=== PATIENT | male | born 1950 | race Caucasian/White ===

== ENCOUNTER 2021-09-03 11:20 | Outpatient (REF) | payer MEDICARE, SELFPAY ==
--- NOTE | ~2021-09-03 | XR_ITS ---
EXAMINATION: XR CHEST CLINICAL INFORMATION: R05.9 - Cough, unspecified COMPARISON: Chest radiographs 07/21/2020, 07/16/2018. TECHNIQUE: 2 views of the chest were obtained. FINDINGS: The lungs are clear. There is no airspace consolidation or groundglass opacity or effusion. The costophrenic sulci are well-defined. The heart is normal in size. The hilar and mediastinal contours are unremarkable. No acute bony abnormality. XR/XR chest 2V IMPRESSION: Unremarkable examination.
== END 2021-09-03 11:21 | disposition home or self-care (01) ==
LOC: HO.HMGCX 11:20
PROVIDERS: PCP Internal Medicine; Visit Provider Physician Assistant Medical
DX: R05.9 Cough, unspecified (principal)
CPT/HCPCS: 71046

== ENCOUNTER 2021-09-12 13:37 | Outpatient (REF) | payer MEDICARE, SELFPAY ==
--- NOTE | ~2021-09-12 | US_ITS ---
EXAMINATION: US RETROPERITONEAL LIMITED (RENAL ONLY) CLINICAL INFORMATION: Malignant neoplasm of bladder, unspecified. COMPARISON: CT abdomen and pelvis 10/30/2020. X-ray abdomen 08/21/2017. TECHNIQUE: Real-time imaging of the kidneys. FINDINGS: RIGHT KIDNEY: 10.6 x 5.6 x 5.8 cm (SAG x AP x TRV). The kidney is normal in size, contour, and echogenicity. Renal cortical thickness is normal. No renal calculi or hydronephrosis. Redemonstration of a mid/upper pole simple cyst measuring up to 4.3 cm, not significantly changed. LEFT KIDNEY: 12.3 x 5.9 x 4.7 cm (SAG x AP x TRV). The kidney is normal in size, contour, and echogenicity. Renal cortical thickness is normal. No renal calculi or hydronephrosis. Upper pole simple cyst measuring up to 5.6 cm, not significantly changed. US/US renal BI IMPRESSION: No hydronephrosis or hydroureter. Simple bilateral renal cysts, similar when compared to the prior CT. No new renal parenchymal lesion.
== END 2021-09-12 13:38 | disposition home or self-care (01) ==
LOC: HO.HMGCX 13:37
PROVIDERS: PCP Internal Medicine; Visit Provider Urology
DX: R31.29 Other microscopic hematuria (principal); C67.9 Malignant neoplasm of bladder, unspecified
CPT/HCPCS: 76775

== ENCOUNTER → 2021-10-23 11:28 | Outpatient (BNVA) | payer MEDICARE, SELFPAY | PROVIDERS: PCP Internal Medicine; Visit Provider Urology | CPT/HCPCS: Q3014 ==

== ENCOUNTER 2022-09-23 06:07 | Outpatient (REF) | payer MEDICARE, SELFPAY ==
--- NOTE | ~2022-09-23 | CT_ITS ---
EXAMINATION: CT ABDOMEN AND PELVIS WITHOUT AND WITH CONTRAST CLINICAL INFORMATION: Bladder cancer COMPARISON: Previous CT of the abdomen and pelvis July 2020 and renal ultrasound August 2021 TECHNIQUE: Noncontrast CT of the abdomen and pelvis is performed followed by split bolus contrast-enhanced images using 85 mL Omnipaque 350 contrast.? Postcontrast imaging is performed during the combined nephrogram and excretion phase. Sagittal and coronal reformatted images were obtained on the technologist's workstation for both the precontrast and postcontrast phases. This CT examination was performed using dose optimization techniques as appropriate, variously including the following: *Automated exposure control *Adjustment of mA and/or kV according to patient size (this includes techniques or standardized protocols for targeted exams where dose is matched to indication/reason for exam; i.e. extremities or head) *Use of iterative reconstruction technique DLP: 697 mGy-cm FINDINGS: LUNG BASES: The visualized lung bases are unremarkable. LIVER, GALLBLADDER, AND BILIARY TREE: The liver is normal in size and shape. Mild fatty infiltration of the liver. No focal hepatic lesion or biliary ductal dilatation is present. Small gallstones in the gallbladder. PANCREAS: Unremarkable. SPLEEN: Unremarkable. ADRENAL GLANDS: Fullness of the left adrenal gland stable from previous exams. 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 KIDNEYS AND URETERS: The kidneys are normal in size, shape, and attenuation. There are bilateral renal simple cysts. No hydronephrosis, hydroureter, or calculi seen. No perinephric stranding. The collecting systems are normal. The ureters are well-opacified. The right ureter is normal appearing. The left ureter appears small in caliber distally. No filling defect in the collecting systems or ureters is appreciated. BLADDER: Surgically removed. Right lower quadrant ileal conduit and urostomy. GASTROINTESTINAL TRACT: Postsurgical changes following right lower quadrant ileal conduit and urostomy. Mild diverticulosis of the colon. No evidence of diverticulitis. Normal appendix. ABDOMINAL WALL: Small ventral and umbilical hernias containing fat. LYMPH NODES: Normal. VASCULAR: Unremarkable. PELVIC VISCERA: The prostate gland has been removed. No pelvic mass. OSSEUS STRUCTURES: Degenerative changes of the spine and hip joints. CT/CT urogram IMPRESSION: Stable exam post radical cystectomy, right lower quadrant ileal conduit and urostomy. Bilateral renal cysts.
[2022-09-23 07:51] LABS: Anion Gap 16 (12-20); Blood Urea Nitrogen 16 mg/dL (9-16); Calcium 9.5 mg/dL (8.4-10.2); Carbon Dioxide 29 mmol/L (22-29); Chloride 101 mmol/L (96-108); Estimated Glomerular Filt Rate > 60; Glucose Random 90 mg/dL (60-115); Sodium 141 mmol/L (135-145)
[2022-09-23 08:41] LABS: Folate 11.4 ng/mL (> or = 4.0); Vitamin B12 341 pg/mL (200-900)
[2022-09-23] MEDS: iohexoL 350 MG/ML 100 ML INFUS..BTL IV (08:54)
[2022-09-23 09:36] LABS: Creatinine POC 0.9 mg/dL (0.5-1.4); GFR POC > 60
== END 2022-09-23 06:08 | disposition home or self-care (01) ==
LOC: HO.CT 06:07
PROVIDERS: PCP Internal Medicine; Visit Provider Urology
DX: C67.9 Malignant neoplasm of bladder, unspecified (principal)
CPT/HCPCS: 36415; 74178; 80048; 82565; 82607; 82746; Q9967

== ENCOUNTER 2022-10-22 14:12 | Outpatient (AMB) | payer MEDICARE, SELFPAY ==
--- NOTE | 2022-10-20 13:54 | A.OFFVIS_ITS ---
Intake Intake Visit Reasons: 1 Year Urogram/Labs(set) Intake Note: Patient is Present for UROGRAM/LABS Follow Up Urology Medication: none Blood Thinner:none Urine Will be sent to lab for Cytology Allergies No Known Allergies [No Known Allergies*] Allergy (Verified 10/20/23 08:39) HPI HPI Comments History of Present Illness Details ?Mr Lopez is a very pleasant male. They are a patient of Dr Fernandez. They are seen in the office today for the following urologic conditions. - bladder cancer Yearly followup Bladder Cancer: Invasive bladder cancer. Cystectomy August 2017 ? Five years from cystectomy ?Completed interval imaging ?No abnormality detected ?Cytology normal ?Doing well ?Stoma looks pink and minimal mucus - coloplast products - [facility] ?Review in 12 months. ? Bladder cancer was initially diagnosed?Dr Haddad , during evaluation for microscopic hematuria 03/2017.? Bladder intervention(s) performed?04/15 , TURBT, T2a invades superficial muscularis propia, High Grade ?09/[address] Ortiz - [id number].? Bladder cancer risk factors? Organic Solvent exposure ?No ? smoking ?No ? Associated symptoms? hematuria ?Yes ? urge ?Yes ? Prior Cytology?04/15 , Cells consistent with malignancy ?03/17 , Normal ?08/17 , Negative for malignancy ?08/18 Labs B12 - Normal, Cytology Normal ?07/19 Normal - Cr 0.9 ? Prior Imaging?04/15 , CT scan with contrast [place] - no ángel disease, 5cm UVJ left lesion ?03/17 CT and CXR , No evidence for metastases, Negative ?08/17 imaging normal, 01/18 CT abd/pelvis NAD, small hernia, 08/18 CT NAD, 01/19 CT NAD, 07/19 CT NAD. 09/19 US NAD [facility] Medical History Malignant neoplasm of dome of bladder Bladder cancer Microscopic hematuria Prostatitis Social History Alcohol intake: never Patient Tobacco Use Status: Former Tobacco user Review of Systems Const Denies chills and Denies fever(s) Card Reports no additional complaints and Denies syncope Resp Denies cough GI Denies abdominal pain and Denies heartburn Reports as per HPI and Denies change in libido Neuro Denies syncope Psych Denies change in libido Endo Denies change in libido Physical Exam Const General: cooperative, healthy appearing, comfortable and no acute distress Orientation/consciousness: patient oriented x3 HEENT Face and sinus: Yes normal facial exam Mouth: moist mucous membranes Neck Neck: Yes normal visual inspection, Yes full ROM and Yes trachea midline Chest Chest palpation & inspection: normal inspection of the chest Resp Effort & Inspection: normal respiratory effort, able to speak in complete sentences and no respiratory distress GI Inspection: Yes normal to inspection Back/Spine/Pelvis Cervical Spine: normal cervical lordosis Thoracic/Lumbar Spine: thoracic and lumbar spine normal to inspection Skin General skin exam: no rashes or lesions noted Neuro General: patient oriented x3, gait normal, tone normal and moves all extremities Extrem General: Yes normal to inspection and Yes capillary refill normal Results AMB Urinalysis, Automated UA Leukoctes 125 Shayy/uL Last Edit by DIAMOND Nascimento on 10/22/22 14:49 UA Nitrite Positive Last Edit by DIAMOND Nascimento on 10/22/22 14:49 UA Urobilinogen 0.2 mg/dL Last Edit by DIAMOND Nascimento on 10/22/22 14:4 9 UA Protein 30 mg/dL Last Edit by DIAMOND Nascimento on 10/22/22 14:49 UA pH 6.5 Last Edit by DIAMOND Nascimento on 10/22/22 14:49 UA Blood 25 Miquel/uL Last Edit by DIAMOND Nascimento on 10/22/22 14:49 UA Specific [place] 1.010 Last Edit by CHRISTINA NascimentoA on 10/22/22 14: 49 UA Ketone Negative Last Edit by CHRISTINA NascimentoA on 10/22/22 14:49 UA Bilirubin 0 mg/dL Last Edit by Toya Nolasco RMA on 10/22/22 14:49 UA Glucose 0 mg/dL Last Edit by CHRISTINA NascimentoA on 10/22/22 14:49 Results Reviewed Results Reviewed: Laboratory Last Values Urine pH (Auto) 6.5 10/22/22 14:48 Specific [place] (Auto) 1.010 10/22/22 14:48 Urine Protein (Auto) 30 mg/dL 10/22/22 14:48 Glucose (UA)(Auto) 0 mg/dL 10/22/22 14:48 Urine Ketones (Auto) Negative 10/22/22 14:48 Urine Blood (Auto) 25 Miquel/uL 10/22/22 14:48 Urine Nitrite (Auto) Positive 10/22/22 14:48 Urine Bilirubin (Auto) 0 mg/dL 10/22/22 14:48 Urine Urobilinogen (Auto) 0.2 mg/dL 10/22/22 14:48 Leukocyte Esterase (Auto) 125 Shayy/uL 10/22/22 14:48 Assessment & Plan Assessment & Plan (1) Bladder cancer: Comment: High-grade invasive cystectomy August 2017 Code(s): C67.9 - Malignant neoplasm of bladder, unspecified Plan Twelve month follow-up Orders: Orders AMB Urinalysis Automated 10/22/22 Z13.9 - Encounter for screening, unspecified Urine Cytology 10/22/22 C67.9 - Malignant neoplasm of bladder, unspecified US retroperitoneal limited 1 Year C67.9 - Malignant neoplasm of bladder, unspecified Basic Metabolic Panel 1 Year N20.0 - Calculus of kidney, C67.9 - Malignant neoplasm of bladder, unspecified Vitamin B12 and Folate 1 Year C67.9 - Malignant neoplasm of bladder, unspecified Patient Instructions: Imaging studies, laboratory and physical exam results were discussed and reviewed in detail. No major barriers to patient understanding were identified. An opportunity to ask questions regarding the treatment plan was provided. All questions were answered. The patient expressed understanding and agreement with the above treatment plan. The patient is aware they should contact our office by phone for worsening of their current condition or the appearance of new urologic symptoms. Compliance is encouraged with any medications and followup testing that is ordered. It is a privilege to participate in the urologic care of your patient. If you have any questions or concerns regarding treatment for the above conditions, or other urologic issues, please do not hesitate to contact me. The office telephone contact is [phone]. This note is constructed using voice recognition software. While every effort has been made to ensure accuracy garment folder errors may have been included. Yours sincerely, Dr Ha Haddad MD, [facility] - Urology Providers of Expert, Compassionate Care for the Genitourinary System Coding Level of Care Code Est Pt Level 4 (72419) Diagnoses Bladder cancer C67.9
== END 2022-10-22 15:29 | disposition home or self-care (01) ==
LOC: HO.HUSH 14:12
PROVIDERS: PCP Internal Medicine; Visit Provider Urology
DX: C67.9 Malignant neoplasm of bladder, unspecified (principal)
CPT/HCPCS: 99214; 99499

== ENCOUNTER → 2022-10-22 14:12 | Outpatient (BNVA) | payer MEDICARE, SELFPAY | PROVIDERS: PCP Internal Medicine; Visit Provider Urology | DX: C67.9 Malignant neoplasm of bladder, unspecified (principal) | CPT/HCPCS: 99212 ==

== ENCOUNTER 2022-10-22 14:48 | Outpatient (REF) | payer MEDICARE, SELFPAY ==
[2022-10-22 17:14] LABS: Urine Cytology See Pathology rpt
== END 2022-10-22 14:49 | disposition home or self-care (01) ==
LOC: HO.LAB 14:48
PROVIDERS: Visit Provider Urology
DX: C67.9 Malignant neoplasm of bladder, unspecified (principal)
CPT/HCPCS: 88112

== ENCOUNTER 2023-09-30 07:39 | Outpatient (REF) | payer MEDICARE, SELFPAY ==
--- NOTE | ~2023-09-30 | US_ITS ---
EXAMINATION: US RETROPERITONEAL LIMITED (RENAL ONLY) CLINICAL INFORMATION: Malignant neoplasm of bladder, unspecified. COMPARISON: CT urogram 09/23/2022. Renal ultrasound 09/12/2021. X-ray abdomen 08/21/2017. TECHNIQUE: Real-time imaging of the kidneys. FINDINGS: RIGHT KIDNEY: 11.2 x 6.6 x 5.8 cm (SAG x AP x TRV). The kidney is normal in size, contour, and echogenicity. Renal cortical thickness is normal. No renal calculi or hydronephrosis. Multiple right renal cystic foci the largest measuring up to 5.8 cm in the upper pole, simple appearing, not requiring follow-up. LEFT KIDNEY: 12.8 x 5.6 x 4.5 cm (SAG x AP x TRV). The kidney is normal in size, contour, and echogenicity. Renal cortical thickness is normal. No renal calculi or hydronephrosis. Left renal upper pole cystic foci measuring up to 6.5 cm simple appearing, not requiring follow-up. US/US renal BI IMPRESSION: 1. No nephrolithiasis or hydronephrosis. 2. Bilateral simple appearing renal cystic foci the largest measuring up to 6.5 cm in the left renal upper pole, not requiring follow-up.
== END 2023-09-30 07:40 | disposition home or self-care (01) ==
LOC: HO.US 07:39
PROVIDERS: PCP Internal Medicine; Visit Provider Urology
DX: C67.9 Malignant neoplasm of bladder, unspecified (principal)
CPT/HCPCS: 76775

== ENCOUNTER 2023-10-13 08:13 | Outpatient (AMB) | payer MEDICARE, SELFPAY ==
[2023-10-13 09:07] VITALS: BP 142/80; PULSE 82; TEMP 36.6; O2SAT 97; BMI 25.5
--- NOTE | 2023-10-13 09:07 | MHC.OFFWIV ---
Intake Vital Signs 10/13/23 09:07 Height 5 ft 10.5 in Weight 180 lb BMI 25.5 BP 142/80 H Blood Pressure Location Lt brachial Position Sitting Pulse 82 Pulse Source Pulse Oximeter Temp 97.9 F Temp Source Temporal Artery Scan Pulse Oximetry (%) 97 Oxygen Delivery Method Room Air Intake Visit Reasons: EST/persistant cough (lobby masked) Intake Note: pt is here for c/o persistent cough Patient Tobacco Use Status: Former Tobacco user Allergies No Known Allergies [No Known Allergies*] Allergy (Verified 10/13/23 09:45) Medication List - Last Reconciled 10/13/23 by Tim Emmanuel MD azithromycin take 500 mg today (day 1), then 250 mg for 4 days (days 2-5) PO lisinopril 40 mg PO DAILY prednisone 60 mg (3 x 20 mg) PO DAILY simvastatin 20 mg PO BEDTIME Do you need a note to return to daycare/school/sports/work: Yes HPI EST/persistant cough (lobby masked) HPI Details Patient presents for a sick visit. Reporting symptoms of sinus congestion, sore throat and difficulty swallowing. Low-grade fever. No family member is sick. No recent travel. Patient reports symptoms of malaise and fatigue. [facility] Medical History Malignant neoplasm of dome of bladder Bladder cancer Microscopic hematuria Prostatitis Social History Alcohol intake: never Patient Tobacco Use Status: Former Tobacco user Physical Exam Vital Signs: Last Vital Signs Temp 97.9 F 10/13/23 09:07 Pulse 82 10/13/23 09:07 BP 142/80 H 10/13/23 09:07 Pulse Ox 97 10/13/23 09:07 Oxygen Delivery Method Room Air 10/13/23 09:07 BMI result Body Mass Index 25.5 Const General: cooperative and healthy appearing Nutritional Appearance: well nourished Orientation/consciousness: patient oriented x3 Limitations: no limitations HEENT Head: Yes normal to inspection Eyes General: appearance normal, both eyes and all related structures Neck Neck: Yes normal visual inspection Chest Chest palpation & inspection: normal palpation of entire chest wall Resp Effort & Inspection: normal respiratory effort Neuro General: patient oriented x3 Assessment & Plan Assessment & Plan (1) Cough: Code(s): R05.9 - Cough, unspecified Plan: Antibiotics ordered. Increase fluid intake. Tylenol for aches and pains. If symptoms worsen, follow-up here for a recheck.. Will call with results of the virus test. Orders: Orders SARS-CoV2/FLU/RSV Today R43.9 - Unspecified disturbances of smell and taste Medications: New prednisone 60 mg (3 x 20 mg) PO DAILY 9 tabs 0RF azithromycin take 500 mg today (day 1), then 250 mg for 4 days (days 2-5) PO 6 tabs 0RF Coding Level of Care Code Est Pt Level 3 (01678) Diagnoses Cough R05.9
== END 2023-10-13 10:24 | disposition home or self-care (01) ==
PROVIDERS: PCP Internal Medicine; Visit Provider Internal Medicine
DX: R05.9 Cough, unspecified (principal)
CPT/HCPCS: 99213

== ENCOUNTER 2023-10-13 13:32 | Outpatient (REF) | payer MEDICARE, SELFPAY ==
[2023-10-13 14:33] LABS: Influenza A PCR NEGATIVE (Negative); Influenza B PCR NEGATIVE (Negative); Resp Syncy Virus RNA Qual PCR NEGATIVE (Negative); SARS COV2 PCR INHOUSE NEGATIVE (Negative)
== END 2023-10-13 13:33 | disposition home or self-care (01) ==
LOC: HO.LNP 13:32
PROVIDERS: Visit Provider Internal Medicine
DX: Z11.52 Encounter for screening for COVID-19 (principal); R43.9 Unspecified disturbances of smell and taste; Z20.822 Contact with and (suspected) exposure to COVID-19
CPT/HCPCS: 0241U

== ENCOUNTER 2023-10-20 08:27 | Outpatient (AMB) | payer MEDICARE, SELFPAY ==
--- NOTE | 2023-10-20 08:38 | A.OFFVIS_ITS ---
Intake Intake Visit Reasons: 1YR US(set) Intake Note: Patient is Present for Follow Up US Urology Medication: None Antibiotic Allergies: None Blood Thinners: None Allergies No Known Allergies [No Known Allergies*] Allergy (Verified 10/20/23 08:39) Medication List - Last Reconciled 10/20/23 by Ha Haddad MD lisinopril 40 mg PO DAILY prednisone 60 mg (3 x 20 mg) PO DAILY simvastatin 20 mg PO BEDTIME HPI HPI Comments History of Present Illness Details ?Mr Lopez is a very pleasant male. They are a patient of Dr Fernandez. They are seen in the office today for the following urologic conditions. - bladder cancer Doing extremely well Stoma looks great Trace blood in urine but had recently changed stoma Obtains specially underwear from [employer] website 12 month follow-up Bladder Cancer: Invasive bladder cancer. Cystectomy August 2017 ? 6 years from cystectomy ?Completed interval imaging ?No abnormality detected ?Cytology normal ?Doing well ?Stoma looks pink and minimal mucus - coloplast products - [facility] ?Review in 12 months. ? Bladder cancer was initially diagnosed?Dr Haddad , during evaluation for microscopic hematuria 03/2017.? Bladder intervention(s) performed?04/15 , TURBT, T2a invades superficial muscularis propia, High Grade ?09/[address] Ortiz - [id number].? Bladder cancer risk factors? Organic Solvent exposure ?No ? smoking ?No ? hair dye exposure ?No ? use of pioglitazone ?No ? chronic cystitis ?No ? prior chemotherapy with cyclophosphamide ?No ? family history of bladder cancer ?No ? pelvic radiation ?No ? Associated symptoms? hematuria ?Yes ? urge ?Yes ? Prior Cytology?04/15 , Cells consistent with malignancy ?03/17 , Normal ?08/17 , Negative for malignancy ?08/18 Labs B12 - Normal, Cytology Normal ?07/19 Normal - Cr 0.9 ? Prior Imaging?04/15 , CT scan with contrast [place] - no ángel disease, 5cm UVJ left lesion ?03/17 CT and CXR , No evidence for metastases, Negative ?08/17 imaging normal, 01/18 CT abd/pelvis NAD, small hernia, 08/18 CT NAD, 01/19 CT NAD, 07/19 CT NAD. 09/19 US NAD, 09/20 CT Urogram NAD - 09/21 US NAD PFSH Medical History Malignant neoplasm of dome of bladder Bladder cancer Microscopic hematuria Prostatitis Social History Alcohol intake: never Patient Tobacco Use Status: Former Tobacco user Review of Systems Const Denies chills and Denies fever(s) Card Reports no additional complaints and Denies syncope Resp Denies cough GI Denies abdominal pain and Denies heartburn Reports as per HPI and Denies change in libido Neuro Denies syncope Psych Denies change in libido Endo Denies change in libido Physical Exam Const General: cooperative, healthy appearing, comfortable and no acute distress Orientation/consciousness: patient oriented x3 HEENT Face and sinus: Yes normal facial exam Mouth: moist mucous membranes Neck Neck: Yes normal visual inspection, Yes full ROM and Yes trachea midline Chest Chest palpation & inspection: normal inspection of the chest Resp Effort & Inspection: normal respiratory effort, able to speak in complete sentences and no respiratory distress GI Inspection: Yes normal to inspection Back/Spine/Pelvis Cervical Spine: normal cervical lordosis Thoracic/Lumbar Spine: thoracic and lumbar spine normal to inspection Skin General skin exam: no rashes or lesions noted Neuro General: patient oriented x3, gait normal, tone normal and moves all extremities Extrem General: Yes normal to inspection and Yes capillary refill normal Results AMB Urinalysis, Automated UA Leukoctes 0 Shayy/uL Last Edit by Toya Nolasco, A on 10/20/23 08:49 UA Nitrite Negative Last Edit by Toya Nolasco, A on 10/20/23 08:49 UA Urobilinogen 0.2 mg/dL Last Edit by Toya Nolasco, A on 10/20/23 08:4 9 UA Protein 15 mg/dL Last Edit by Toya Nolasco A on 10/20/23 08:49 UA pH 6.0 Last Edit by Toya Nolasco, A on 10/20/23 08:49 UA Blood 200 Miquel/uL Last Edit by Toya Nolasco A on 10/20/23 08:49 UA Specific [place] 1.010 Last Edit by Toya Nolasco, A on 10/20/23 08: 49 UA Ketone Negative Last Edit by Toya Nolasco [facility] on 10/20/23 08:49 UA Bilirubin 0 mg/dL Last Edit by Toya Nolasco A on 10/20/23 08:49 UA Glucose 0 mg/dL Last Edit by Toya Nolasco A on 10/20/23 08:49 Results Reviewed Results Reviewed: Laboratory Last Values Urine pH (Auto) 6.0 10/20/23 08:39 Specific [place] (Auto) 1.010 10/20/23 08:39 Urine Protein (Auto) 15 mg/dL 10/20/23 08:39 Glucose (UA)(Auto) 0 mg/dL 10/20/23 08:39 Urine Ketones (Auto) Negative 10/20/23 08:39 Urine Blood (Auto) 200 Miquel/uL 10/20/23 08:39 Urine Nitrite (Auto) Negative 10/20/23 08:39 Urine Bilirubin (Auto) 0 mg/dL 10/20/23 08:39 Urine Urobilinogen (Auto) 0.2 mg/dL 10/20/23 08:39 Leukocyte Esterase (Auto) 0 Shayy/uL 10/20/23 08:39 Assessment & Plan Assessment & Plan (1) Bladder cancer: Comment: High-grade invasive cystectomy August 2017 Code(s): C67.9 - Malignant neoplasm of bladder, unspecified (2) Malignant neoplasm of dome of bladder: Code(s): C67.1 - Malignant neoplasm of dome of bladder Plan Twelve month follow-up Orders: Orders AMB Urinalysis Automated Today Z13.9 - Encounter for screening, unspecified FISH Bladder Cancer Today C67.9 - Malignant neoplasm of bladder, unspecified US renal BI 364 Days C67.9 - Malignant neoplasm of bladder, unspecified Patient Instructions: Imaging studies, laboratory and physical exam results were discussed and reviewed in detail. No major barriers to patient understanding were identified. An opportunity to ask questions regarding the treatment plan was provided. All questions were answered. The patient expressed understanding and agreement with the above treatment plan. The patient is aware they should contact our office by phone for worsening of their current condition or the appearance of new urologic symptoms. Compliance is encouraged with any medications and followup testing that is ordered. It is a privilege to participate in the urologic care of your patient. If you have any questions or concerns regarding treatment for the above conditions, or other urologic issues, please do not hesitate to contact me. The office telephone contact is [phone]. This note is constructed using voice recognition software. While every effort has been made to ensure accuracy supervising bailiff errors may have been included. Yours sincerely, Dr Ha Haddad MD, [facility] - Urology Providers of Expert, Compassionate Care for the Genitourinary System Coding Level of Care Code Est Pt Level 4 (95347) Diagnoses Bladder cancer C67.9 Malignant neoplasm of dome of bladder C67.1
== END 2023-10-20 09:10 | disposition home or self-care (01) ==
PROVIDERS: Visit Provider Urology
DX: C67.9 Malignant neoplasm of bladder, unspecified (principal); C67.1 Malignant neoplasm of dome of bladder; Z13.9 Encounter for screening, unspecified
CPT/HCPCS: 99213

== ENCOUNTER 2023-10-20 08:27 | Outpatient (REF) | payer MEDICARE, SELFPAY | END 2023-10-20 08:28 | disposition home or self-care (01) | LOC: HO.LAB 08:27 | PROVIDERS: Visit Provider Urology | DX: C67.1 Malignant neoplasm of dome of bladder (principal); Z79.899 Other long term (current) drug therapy | CPT/HCPCS: 81003; 88121; 99212 ==

== ENCOUNTER 2024-10-10 07:30 | Outpatient (REF) | payer MEDICARE, SELFPAY | END 2024-10-10 07:31 | disposition home or self-care (01) | LOC: HO.US 07:30 | PROVIDERS: PCP Internal Medicine; Visit Provider Urology | DX: C67.9 Malignant neoplasm of bladder, unspecified (principal) | CPT/HCPCS: 76775 ==

== ENCOUNTER 2024-10-20 08:20 | Outpatient (AMB) | payer MEDICARE, SELFPAY ==
--- NOTE | 2024-10-20 08:40 | A.OFFVIS_ITS ---
Intake Visit Reasons: 1Y Renal U/S(set) Intake Note: Patient is Present for Follow Up Urology Medication: None Antibiotic Allergies:None Blood Thinners: None Imagin10/10/2024 -Renal Ultrasound Bladder CA - Last Urine Cytology- 10/27/22-Negative for high-grade urothelial carcinoma - Last Bladder FISH Cytology- 10/20/23- NEGATIVE RESULT FOR THE UROVYSION FISH ASSAY Associate Application Developer Required: No Accompanied by: Self / Same As Patient Allergies No Known Allergies [No Known Allergies*] Allergy (Verified 10/20/24 08:42) HPI Comments Details: ?Mr Lopez is a very pleasant male. They are a patient of Dr Fernandez. They are seen in the office today for the following urologic conditions. - bladder cancer Yearly follow-up 7 years since cystectomy Doing extremely well Stoma looks great Obtains specially underwear from ostomy secrets website 12 month follow-up Bladder Cancer: Invasive bladder cancer. Cystectomy August 2017 ?Completed interval imaging ?No abnormality detected ?Cytology normal 09/20, FISH NAD 10/22 ?Doing well ?Stoma looks pink and minimal mucus - coloplast products - [facility] ?Review in 12 months. ? Bladder cancer was initially diagnosed?Dr Haddad , during evaluation for microscopic hematuria 03/2017.? Bladder intervention(s) performed?04/15 , TURBT, T2a invades superficial muscularis propia, High Grade ?09/[address] Ortiz - [id number].? Bladder cancer risk factors? Organic Solvent exposure ?No ? smoking ?No ? hair dye exposure ?No ? use of pioglitazone ?No ? chronic cystitis ?No ? prior chemotherapy with cyclophosphamide ?No ? family history of bladder cancer ?No ? pelvic radiation ?No ? Associated symptoms? hematuria ?Yes ? urge ?Yes ? Prior Cytology?04/15 , Cells consistent with malignancy ?03/17 , Normal ?08/17 , Negative for malignancy ?08/18 Labs B12 - Normal, Cytology Normal ?07/19 Normal - Cr 0.9 ? Prior Imaging?04/15 , CT scan with contrast [place] - no ángel disease, 5cm UVJ left lesion ?03/17 CT and CXR , No evidence for metastases, Negative ?08/17 imaging normal, 01/18 CT abd/pelvis NAD, small hernia, 08/18 CT NAD, 01/19 CT NAD, 07/19 CT NAD. 09/19 US NAD, 09/20 CT Urogram NAD - 09/21 US NAD, 09/22 NAD PFSH Medical History Malignant neoplasm of dome of bladder Bladder cancer Microscopic hematuria Prostatitis Surgical History H/O partial cystectomy Social History Alcohol intake: never Patient Tobacco Use Status: Former Tobacco user Review of Systems Const Denies chills and Denies fever(s) Card Reports no additional complaints and Denies syncope Resp Denies cough GI Denies abdominal pain and Denies heartburn Reports as per HPI and Denies change in libido Neuro Denies syncope Psych Denies change in libido Endo Denies change in libido Physical Exam Const General: cooperative, healthy appearing, comfortable and no acute distress Orientation/consciousness: patient oriented x3 HEENT Face and sinus: Yes normal facial exam Mouth: moist mucous membranes Neck Neck: Yes normal visual inspection, Yes full ROM and Yes trachea midline Chest Chest palpation & inspection: normal inspection of the chest Resp Effort & Inspection: normal respiratory effort, able to speak in complete sentences and no respiratory distress GI Inspection: Yes normal to inspection Back/Spine/Pelvis Cervical Spine: normal cervical lordosis Thoracic/Lumbar Spine: thoracic and lumbar spine normal to inspection Skin General skin exam: no rashes or lesions noted Neuro General: patient oriented x3, gait normal, tone normal and moves all extremities Extrem General: Yes normal to inspection and Yes capillary refill normal Assessment & Plan Assessment & Plan (1) Bladder cancer: Comment: High-grade invasive cystectomy August 2017 Code(s): C67.9 - Malignant neoplasm of bladder, unspecified Category: Medical Plan Twelve month follow-up office imaging labs Orders: Orders Vitamin B12 and Folate 1 Year C67.9 - Malignant neoplasm of bladder, unspecified US retroperitoneal limited 1 Year C67.9 - Malignant neoplasm of bladder, unspecified, R31.29 - Other microscopic hematuria Basic Metabolic Panel 1 Year C67.9 - Malignant neoplasm of bladder, unspecified, N20.0 - Calculus of kidney Patient Instructions: Imaging studies, laboratory and physical exam results were discussed and reviewed in detail. No major barriers to patient understanding were identified. An opportunity to ask questions regarding the treatment plan was provided. All questions were answered. The patient expressed understanding and agreement with the above treatment plan. The patient is aware they should contact our office by phone for worsening of their current condition or the appearance of new urologic symptoms. Compliance is encouraged with any medications and followup testing that is ordered. It is a privilege to participate in the urologic care of your patient. If you have any questions or concerns regarding treatment for the above conditions, or other urologic issues, please do not hesitate to contact me. The office telephone contact is [phone]. This note is constructed using voice recognition software. While every effort has been made to ensure accuracy food service sales representatives errors may have been included. Yours sincerely, Dr Ha Haddad MD, [facility] - Urology Providers of Expert, Compassionate Care for the Genitourinary System Coding Level of Care Code Est Pt Level 4 (52661) Diagnoses Bladder cancer C67.9
== END 2024-10-20 09:13 | disposition home or self-care (01) ==
PROVIDERS: PCP Internal Medicine; Visit Provider Urology
DX: C67.9 Malignant neoplasm of bladder, unspecified (principal)
CPT/HCPCS: 99214

== ENCOUNTER → 2024-10-20 08:20 | Outpatient (BNVA) | payer MEDICARE, SELFPAY | PROVIDERS: PCP Internal Medicine; Visit Provider Urology | DX: C67.9 Malignant neoplasm of bladder, unspecified (principal) | CPT/HCPCS: 99212 ==

== ENCOUNTER 2025-10-04 07:22 | Outpatient (REF) | payer MEDICARE, SELFPAY ==
--- OUTSIDE RECORDS SUMMARY | 2025-07-11 04:30 | XMS_ITS ---
Author Organization [facility] Address [address] [place] [address] Care Team Providers Care Hemmer Chainstitch Name Role Phone Rebecca QUESADA, Wilfred Pope Primary Care Provider Unav ailable Mariaa Navarrete Unavailable [phone] Barton Encounters Encounter Location Date Provider Diagnosis [facility] [address] [place] [address] 07/11/2025 Mariaa Navarrete Plan Of Treatment No Information Progress Notes * Bassem BAJWADOB: [birth year] (75 yo M)Acc No.[id number]:07/11/2025 Progress Notes Patient: Bassem FRANCISCO Provider: Sera Navarrete DPM :1950 A ge:75 Y S ex:Male Date:07/11/2025 Address:[address] [place] [id number] Pcp:Wilfred Fernandez MD Subjective: * Chief Complaints: * [address] Barton[address] * Medical History: Objective: * Vitals: Assessment: Plan: * Treatment: * Images: * The named appointment provid er may or may not be the originator of this progress note, and it is not deemed complete until electronically signed by the appointment provider. Sign off status: Pending * Provider: Sera Navarrete DPM Date: 0 07/11/2025 Generated for Tee webster/Oscar/Mariolaitting on: 12/04/2024 07:25 AM EST
--- OUTSIDE RECORDS SUMMARY | 2025-10-04 07:25 | XMS_ITS | Clinical Summary ---
Author Organization [employer] [employer] Address [address] [facility] [address] [place] [address] Care Team Providers Care Hot Header Operator Name Role Phone Unavailable Primary Care Provider Unavailabl e Immunizations Immunization Administration Dates Next Due Influenza, seasonal, injecta ble, preservative free 08/22/2024,08/19/2023,09/23/2015 Influenza, trivalent, adjuvanted 09/02/2018,07/31,08/17/2016 Pfizer Covid-19 Vaccine 12+ 08/22/2024 Pneumococcal Conjugate PCV 20 09/01/2023 Pneumococcal Polysaccharide PPSV23 07/17/2014 Tdap 07/17/2014 Social History Tobacco Use Types Packs/Day Years Used Date Smoking Tobacco: Never Assessed Sex and Gender Information Value Date Recorded Sex Assigned at Male 08/23/2024 2:47 PM EDT Legal Sex Male 2:44 PM EDT Gender Identity Male 08/23/2024 2:47 PM EDT Sexual Orientation Don't know 08/23/2024 2: 47 PM EDT Plan of Treatment Health Maintenance Due Date Last Done Comments Depression Screening 1950 Lipid Panel 1950 SDOH Screening 1950 Alcohol/Substance Use Screening 1960 Tobacco Screening 1960 Hepatitis C Screening 1966 Zoster Vaccines (1 of 2) 1998 RSV Patients and Patients Aged 60 years or older (1 - 1-dose 75+ series) 2023 DTaP/Tdap/Td Vaccines (2 - Td or Tdap) 07/17/2024 07/17/2014 COVID-19 Vaccine (2 - 2023- season) 2025 08/22/2024 Influenza Vaccine (#1) 2025 , 08/19/2023, 09/02/2018, Additional history exists Pneumococcal Vaccine: 50+ Years Completed 09/01/2023, 07/17/2014 HIB Vaccines Aged Out No longer eligi ble based on patient's age to complete this topic HPV Vaccines Aged Out No longer eligi ble based on patient's age to complete this topic Hepatitis A Vaccines Aged Out No long er eligible based on patient's age to complete this topic Hepatitis B Vaccines Aged Out No long er eligible based on patient's age to complete this topic IPV Vaccines Aged Out No longer eligi ble based on patient's age to complete this topic Meningococcal B Vaccine Aged Out No l onger eligible based on patient's age to complete this topic Meningococcal Vaccine Aged Out No jaylene mulu eligible based on patient's age to complete this topic RSV under 20 months Aged Out No longe r eligible based on patient's age to complete this topic Rotavirus Vaccines Aged Out No longer eligible based on patient's age to complete this topic Insurance MEDICARE SUPPLEMENT
--- OUTSIDE RECORDS SUMMARY | 2025-10-04 07:25 | XMS_ITS | Patient Health Record ---
Author Organization [facility] Address [address] [place] [address] Care Team Providers Care Scout Executive Name Role Phone Rebecca QUESADA, Wilfred Pope Primary Care Provider Unav ailable Mariaa Navarrete Unavailable [phone] Allergies No Known Allergies Reason For Referral No Information Medications Medication SIG (Take, Route, Fr equency, Duration) Notes Start Date End Date Status Simvastatin 20 MG 1 tablet in the even ing Orally Once a day Active Lisinopril 40 MG 1 tablet Orally Once a day Active Ketoconazole 2 % 1 application Apply a thin layer to externally to feet, even between toes Twice a day; Duration: 30 days Active Immunizations Vaccine Route Administration Date Status Comme nts Influenza Unknown 07/31/2024 Administered Social History AUDIT-C (Standard) Question Answer Notes Did you have a drink contain ing alcohol in the past year? Yes How often did you have a dri nk containing alcohol in the past year? Never (0 point) How many drinks did you have on a typical day when you were drinking in the past year? 1 or 2 drinks (0 point) How often did you have six o r more drinks on one occasion in the past year? Never (0 point) Points 0 Interpretation Negative Vital Signs Blood pressure diastolic 80 mm Hg 07/25/2025 Height [id number] in 07/25/2025 Blood pressure systolic 122 mm Hg 07/25/2025 Weight 182 lbs 07/25/2025 BMI 26.11 kg/m2 07/25/2025 Encounters Encounter Location Date Provider Diagnosis [facility] [address] [place] [address] 07/25/2025 Mariaa Navarrete Onychomycosis B35.1 ; Tinea pedis of both feet B35.3 ; Pain in right toe(s) M79.674 and Pain in left toe(s) M79.675 [facility] [address] [address] 04/25/2025 Mariaa Navarrete Assessments Encounter Date Diagnosis (ICD Code) Assessment Notes Treatment Notes Treatment Clinical Notes Section Notes 07/25/2025 Onychomycosis (ICD-10 - B35.1) 07/25/2025 Tinea pedis of both feet (ICD-10 - B35.3) Patient Educated with: ATHELETE .pdf (ATHELETE .pdf) 07/25/2025 Pain in right toe(s) (ICD-10 - M79.674) 07/25/2025 Pain in left toe(s) (ICD-10 - M79.675) Plan Of Treatment No Information Insurance Providers Payer Name Payer Address Payer Phone Subscriber Number Group Number Insured Name Patient Relationship to Insured Coverage Start Date Coverage End Date [employer] [place] [employer] Advantage [facility] [address] [place] [address] [id number] Bassem Lopez Self - patient is the insured 4 Medical (General) History Medical History History ICD Code bladder cancer High Blood Pressure Surgical History Surgery Date(Month/Year) bladder removal 07/1997
--- OUTSIDE RECORDS SUMMARY | 2025-10-04 07:25 | XMS_ITS | Encounter Summary ---
Author Organization [facility] Address [address] [place] [address] Care Team Providers Care Panel Gluer Name Role Phone Wilfred Fernandez MD Primary Care Provider Isa Kaba RN Unavailable [phone] Encounter Details Date Type Department Care Team (Late st Contact Info) Description 08/17/2017 Documentation HH WOUND IP [address] [place] [address] Mara Dunbar RN [address] [place] [address] Social History Tobacco Use Types Packs/Day Years Used Date Smoking Tobacco: Former Cigarettes 0.5 4 0 05/11/1973 - 05/11/1977 Smokeless Tobacco: Never Alcohol Use Standard Drinks/Week Comments Yes 3 (1 standard drink = 0.6 oz pur e alcohol) Sex and Gender Information Value Date Recorded Sex Assigned at Not on file Legal Sex Male 1:11 PM EDT Gender Identity Not on file Sexual Orientation Not on file documented as of this encounter Plan of Treatment Not on file documented as of this encounter Visit Diagnoses Not on filedocumented in this encounter Care Teams Panel Gluer Relationship Specialty Start Date End Date Wilfred Fernandez MD PCP - General 04/23/17 Isa Moser RN [address] [address] Oncology Nurse Navigator 05/25/17 documented as of this encounter
--- OUTSIDE RECORDS SUMMARY | 2025-10-04 07:25 | XMS_ITS | Encounter Summary ---
Author Organization [facility] Address [address] [place] [address] Care Team Providers Care Section Beamer Name Role Phone Wilfred Fernandez MD Primary Care Provider Isa Kaba RN Unavailable Encounter Details Date Type Department Care Team (Late st Contact Info) Description 08/17/[address] [facility] Urologic Surgery [address] [place] [address] Jc Ortiz MD [address] [address] Social History Tobacco Use Types Packs/Day Years [...] on filedocumented in this encounter Care Teams Section Beamer Relationship Specialty Start Date End Date Wiflred Fernandez MD PCP - General 04/23/17 Isa Moser RN [address] [address] Oncology Nurse Navigator 05/25/17 documented as of this encounter
--- OUTSIDE RECORDS SUMMARY | 2025-10-04 07:25 | XMS_ITS | Clinical Summary ---
Author Organization [facility] Address [address] [place] [address] Phone Care Team Providers Care Optical Goods Drill Operator Name Role Phone Wilfred Fernandez MD Primary Care Provider [phone] Allergies No known active allergies Medications LORazepam (ATIVAN) 0.5 mg tablet Take 1 Tablet by mouth daily as needed for Anxiety. Active simvastatin (ZOCOR) 20 mg tablet TAKE 1 TABLET BY MOUTH AT BEDTIME 90 tablet 1 5 Active lisinopril (PRINIVIL,ZEST RIL) 40 mg tablet TAKE 1 TABLET BY MOUTH DAILY 90 tablet 1 5 Active lisinopril (PRINIVIL,ZEST RIL) 40 mg tablet TAKE 1 TABLET BY MOUTH DAILY 90 tablet 1 5 10/03/20 25 Discontinued Active Problems Problem Noted Date Diagnosed Date Bladder cancer ([facility] V24, [facility] V28) 2016 Overview (11/09/2024): Followed by Dr. Urisa. S/p urostomy Assessment & Plan (09/06/2025 10:19 AM EDT): Onychomycosis 07/23/2015 Anxiety 07/17/2014 Assessment & Plan (09/06/2025 10:19 AM EDT): HTN (hypertension) 06/09/2014 Assessment & Plan (09/06/2025 10:19 AM EDT): Hyperlipidemia 06/09/2014 Assessment & Plan (09/06/2025 10:19 AM EDT): Encounters Date Type Department Care Team Description 09/06/2025 9:30 AM EDT Office Visit Adult Medicine [address] [id number] Wilfred Fernandez MD Routine general medical examination at a health care facility (Primary Dx); Patient has healthcare proxy; Primary hypertension; Malignant neoplasm of urinary bladder, unspecified site (CMS/HCC V24, CMS/HCC V28); Anxiety; Pure hypertriglyceridemia from Last 3 Months Immunizations Immunization Administration Dates Next Due DTaP (Infanrix) 6wks to less than 7yo 07/15/2017 Influenza trivalent, 0.5mL ( Fluad) 65yo and older 08/17/2023,09/15/2022,08/29/2021,08/29,09/02/2018,08/13/2017,08/17/2016 ,09/23/2015 Influenza trivalent, 0.5mL, preservative free (Fluarix; FluLaval; Fluzone) ages 6mo and older (Afluria) 3 years and older 08/19/2023 Influenza, Unspecified 08/22/2024 Pfizer (ages 12 & older) Biv alent, COVID-19 09/10/2022 Pneumococcal conjugate 20 va lent (Prevnar 20, PCV 20) 2mo and older 09/01/2023 Pneumococcal polysaccharide 23 valent (Pneumovax 23) 2yo and older 07/17/2014 Respiratory syncytial virus (RSV), unspecified 09/15/2023 Tdap Tetanus diptheria acell ular pertussis (Boostrix; Adacel) 7yo and older 07/17/2014 Zoster recombinant (Shingrix ) 19yo and older 12/07/2020 Surgical History Surgery Date Site/Laterality Comments COLONOSCOPY 11/30/2004 PROCEDURE: HISTORICAL COLONOSCOPY; COMMENT: [facility], polyps removed. COLONOSCOPY 10/14/2010 PROCEDURE: HISTORICAL COLONOSCOPY; COMMENT: No polyps COLONOSCOPY 11/30/2014 PROCEDURE: HISTORICAL COLONOSCOPY; COMMENT: 5 mm cecal polyp: Sessile serrated adenoma COLONOSCOPY 04/09/2021 PROCEDURE: HISTORICAL COLONOSCOPY; COMMENT: Negative but incomplete to the sigmoid colon due to bowel fixation. Minimal diverticulosis. Medical History Medical History Date Comments Personal history of colonic polyps 10/14/2010 DX:Personal history of colonic polyps; COMMENT: Negative colonoscopy 10/14/2010, no colon cancer screening needed for 5 years. HTN (hypertension) 06/09/2014 DX:HTN (hyper tension) Hyperlipidemia 06/09/2014 DX:Hyperlipidemi a Onychomycosis 07/23/2015 DX:Onychomycosis Anxiety 07/17/2014 DX:Anxiety Bladder cancer (CMS/HCC V24, CMS/HCC V28) 04/16/2017 DX:Bladder cancer (HCC); COM MENT: Followed by dr. Haddad. S/p urostomy History of colonic polyps 10/14/2010 DX:His tory of colonic polyps; COMMENT: Negative colonoscopy 10/14/20102014 Family History Medical History Relation Name Comments Suicide Attempts Brother Other: not sure Father at slee p at age 76 Abdominal Aortic Anuerysm (AAA) Mother Colon cancer Neg Hx Relation Name Status Comments Brother Father Mother Social History Tobacco Use Types Packs/Day Years Used Date Smoking Tobacco: Former Smokeless Tobacco: Never Tobacco Cessation:Counseling Given: Not Answered Alcohol Use Standard Drinks/Week Comments Yes 4.2 (1 standard drink = 0.6 oz p ure alcohol) Housing Instability Answer Date Recorde d Are you worried that in the next 2 months you may not have stable housing? No 09/06/2025 Food Access & Nutrition Answer Date Rec orded Do you have access to a vari ety of food including fruits and vegetables? Yes 09/06/2025 Access to Healthcare Answer Date Record ed Within the last 3 months, ho w many times did you visit the emergency department for your medical care? 0 09/06/2025 Health Literacy Answer Date Recorded How often do you need to hav e someone help you when you read instructions, pamphlets, or other written material from your doctor or pharmacy? Never 09/06/2025 Caregiver: How often do you need to have someone help you when you read instructions, pamphlets, or other written material from your doctor or pharmacy? Not on file 09/06/2025 Financial Risk Answer Date Recorded How hard is it for you to pa y for the very basics like food, housing, medical care, and air conditioning / heating? Not very hard 09/06/2025 Transportation Answer Date Recorded Has the lack of transportati on kept you from meetings, work, or from getting things needed for daily living? No Has the lack of transportati on kept you from medical appointments or from getting medications? No 09/06/2025 Social Isolation Answer Date Recorded How often do you feel lonely or isolated from th ose around you? Never 09/06/2025 Food Risk Answer Date Recorded Within the past 12 months we worried whether our food would run out before we got money to buy more. Never true 09/06/2025 Within the past 12 months th e food we bought just didn't last and we didn't have money to get more. Never true 09/06/2025 Dependent Care Answer Date Recorded Do you need help finding or paying for care for your loved ones. For example, child and youth program assistant or elderly care for an older adult? No 09/06/2025 Education Answer Date Recorded Do you think completing more education or training, like finishing a GED, going to college, or learning a trade, would be helpful for you? No 09/06/2025 Employment and Income Answer Date Recor ded During the last four weeks, have you been actively looking for work? No 09/06/2025 Living Situation Answer Date Recorded What is your living situation? Unrecognized valu e 09/06/2025 Sex and Gender Information Value Date Recorded Sex Assigned at Not on file Legal Sex Male 10:56 PM EST Gender Identity Not on file Sexual Orientation Not on file Obstetrics History Last Filed Vital Signs Vital Sign Reading Time Taken Comments Blood Pressure 134/76 09/06/2025 9:16 AM EDT Pulse 65 09/06/2025 9:08 AM EDT Temperature 36.7 C (98 F) 09/06/2025 9:08 AM EDT Respiratory Rate 16 09/06/2025 9:08 AM EDT Oxygen Saturation 98% 02/09/2024 8:3 5 AM EDT at rest, room air Inhaled Oxygen Concentration - - Weight 81.6 kg (180 lb) 09/06/2025 9:08 AM EDT Height 177.8 cm (5' 10 ) 09/06/2025 9:0 8 AM EDT Body Mass Index 25.83 09/06/2025 9:08 AM EDT Plan of Treatment Upcoming Encounters Date Type Department Care Team (Late st Contact Info) Description 02/05/2026 9:30 AM EDT Office Visit Adult Medicine [facility] [address] [place] [address] Zahra Page NP [address] [place] [address] Health Maintenance Due Date Last Done Comments Zoster Vaccines (2 of 2) 02/01/2021 12/07/2020 Colorectal Cancer Screening: Stool Based Tests (FOBT/FIT) 11/08/2022 RSV Immunization Adult Patients (1 - 1-dose 75+ series) 2023 09/15/2023 COVID-19 Vaccine (8 - Pfizer risk season) 2025 08/22/2024, 09/14/2023, 09/10/2022, Additional history exists Hypertension/CHF/CAD Annual BMP Blood Test 08/30/2026 08/30/2025, 02/22/2024 Falls Risk Assessment 09/06/2026 09/06/2025 Medicare Annual Wellness Visit 09/06/2026 09/06/2025 Social Influencers of Health Screening 09/06/2026 09/06/2025 DTaP,Tdap,and Td Vaccines (3 - Td or Tdap) 07/15/2027 07/15/2017, 07/17/2014 Cholesterol Screening (Lipid Panel) 08/30/2030 08/30/2025, 02/22/2024 Hepatitis C Screening Completed 06/09/2014 Abdominal Aortic Aneurysm (AAA) Screen Discontinued 04/06/2017 Colorectal Cancer Screening: Colonoscopy Discontinued 04/09/2021 Pneumococcal Vaccine: 50+ Years Completed 09/01/2023, 07/17/2014 RSV Immunization Patients Under 20 months Aged Out 09/15/2023 No longer eligible based on patient's age to complete this topic Influenza Vaccine Completed 08/24/2025, , 08/19/2023, Additional history exists Depression Screening Completed 09/06/2025 HIB Vaccines Aged Out No longer eligi [...] on patient's age to complete this topic MMR Vaccines Aged Out No longer eligi ble based on patient's age to complete this topic Meningococcal ACWY Vaccine Aged Out N o longer eligible based on patient's age to complete this topic Meningococcal B Vaccine Aged Out No l onger eligible based on patient's age to complete this topic Varicella Vaccines Aged Out No longer eligible based on patient's age to complete this topic Procedures Procedure Name Priority Date/Time Associated Diagnosis Comments THYROID STIMULATING HORMONE WITH REFLEX TO FREE T4 AND FREE T3 Routine 08/30/2025 8:30 AM EDT Anxiety BASIC METABOLIC PANEL Routine 08/30/2025 8:30 AM EDT Hyperglycemia LIPID PANEL WITH REFLEX TO DIRECT LDL Routine 08/30/2025 8:30 AM EDT Pure hypertriglyceridemia HEMOGLOBIN A1C Routine 08/30/2025 8:30 AM EDT Hyperglycemia COLONOSCOPY Routine 04/09/2021 US ABDOMINAL AORTA REAL TIME SCREEN STUDY AAA Routine 04/06/2017 8:46 AM EDT Encounter for screening for cardiovascular disorders HEPATITIS C SCREENING Routine 06/09/2014 from Last 3 Months or Most Recently Relevant to Health Maintenance Results * Thyroid stimulating hormone with reflex to free t4 and free t3 (08/30/2025 8:30 AM EDT) TSH 1.52 0.40 - 4.00 mcIU/mL LAB CHEMISTRY METHOD 08/30/2025 11:24 AM EDT [facility] ([facility] Blood Venous blood specimen / Unknown Venipuncture / Unknown 08/30/2025 8:30 AM EDT 08/30/2025 8:30 AM EDT Wilfred Fernandez MD LAB BLOOD ORDERABLES Final Resul t [facility] [address], [place] [address], [place] [phone] * Lipid panel with reflex to direct LDL (08/30/2025 8:30 AM EDT) Cholesterol 153 0 - 200 mg/dL LAB CHEMISTRY METHOD 08/30/2025 10:30 AM EDT [facility] Triglycerides 120 0 - 150 mg/dL LAB CHEMISTRY METHOD 08/30/2025 10:30 AM EDT [facility] HDL 71 >=40 mg/dL LAB CHEMISTRY METHOD 08/30/2025 10:30 AM EDT [facility] LDL Calculated 58 0 - 100 mg/dL LAB CHEMISTRY METHOD 08/30/2025 10:30 AM EDT [facility] Comment:Estimated LDL Calcul ated using equation: Total cholesterol - HDL cholesterol - (Triglycerides/5) VLDL Cholesterol [place] 24 mg/dL LAB CHEMISTRY METHOD 08/30/2025 10:30 AM EDT [facility] Non HDL Chol. (LDL+VLDL) 82 <145 mg/dL LAB CHEMISTRY METHOD 08/30/2025 10:30 AM EDT [facility] Chol/HDL Ratio 2.2 0.0 - 4.4 LAB CHEMISTRY METHOD 08/30/2025 10:30 AM EDT [facility] Blood Venous blood specimen / Unknown Venipuncture / Unknown 08/30/2025 8:30 AM EDT 08/30/2025 8:30 AM EDT us Wilfred Fernandez MD LAB BLOOD ORDERABLES Final Resul t [facility] [address] [place] [address], [place] [phone] * Hemoglobin A1c (08/30/2025 8:30 AM EDT) [facility] Hemoglobin A1C 5.4 <6.5 % LAB CHEMISTRY METHOD 08/30/2025 1:35 PM EDT [facility] Mean Bld Glu Estim. 108 mg/dL LAB CHEMISTRY METHOD 08/30/2025 1:35 PM EDT [facility] Blood Venous blood specimen / Unknown Venipuncture / Unknown 08/30/2025 8:30 AM EDT 08/30/2025 8:30 AM EDT Wilfred Fernandez MD LAB BLOOD ORDERABLES Final Resul t [facility] [address] [place] [address], [place] [phone] * Basic metabolic panel (08/30/2025 8:30 AM EDT) [facility] Sodium 138 133 - 145 mmol/L LAB CHEMISTRY METHOD 08/30/2025 10:30 AM [facility] Potassium 4.3 3.5 - 5.5 mmol/L LAB CHEMISTRY METHOD 08/30/2025 10:30 AM [facility] Chloride 104 96 - 110 mmol/L LAB CHEMISTRY METHOD 08/30/2025 10:30 AM [facility] CO2 31 21 - 32 mmol/L LAB CHEMISTRY METHOD 08/30/2025 10:30 AM [facility] Anion Gap 3 3 - 11 LAB CHEMISTRY METHOD 08/30/2025 10:30 AM [facility] Glucose 95 70 - 100 mg/dL LAB CHEMISTRY METHOD 08/30/2025 10:30 AM [facility] BUN 17 5 - 25 mg/dL LAB CHEMISTRY METHOD 08/30/2025 10:30 AM EDT [facility] Creatinine 0.81 0.70 - 1.30 mg/dL LAB CHEMISTRY METHOD 08/30/2025 10:30 AM EDT [facility] eGFR 91 >=60 mL/min/1. 73m2 LAB CHEMISTRY METHOD 08/30/2025 10:30 AM EDT [facility] Comment:Calculation based on the Chronic Kidney Disease Epidemiology Collaboration (CKD-EPI) equation refit without adjustment for race. BUN/Creatinine Ratio 21.0 LAB CHEMISTRY METHOD 08/30/2025 10:30 AM EDT [facility] Calcium 9.0 8.5 - 10.5 mg/dL LAB CHEMISTRY METHOD 08/30/2025 10:30 AM EDT [facility] Blood Venous blood specimen / Unknown Venipuncture / Unknown 08/30/2025 8:30 AM EDT 08/30/2025 8:30 AM EDT Wilfred Fernandez MD LAB BLOOD ORDERABLES Final Resul t [facility] [address] [place] [address], * Colonoscopy (04/09/2021) Colonoscopy Normal, Abstracted Anatomical Region Laterality Modality Other Historical Provider [facility] Final Result * US ABDOMINAL AORTA REAL TIME SCREEN STUDY AAA (04/06/2017 8:46 AM EDT) Anatomical Region Laterality Modality Ultrasound 03/26/2017 8:54 AM EDT Narrative 04/06/2017 10:35 AM EDT Ultrasound of the abdominal aorta. History screening for AAA. There is no evidence of abdominal aortic aneurysm. Proximal aorta measures 2 cm AP, mid aorta measures 2.1 cm AP, distal aorta measures 1.6 cm AP. Proximal common iliac arteries measure 1.1 cm in size each. There are multiple calcified plaques within the distal abdominal aorta. CONCLUSIONS: Atherosclerotic changes. No evidence of AAA. Procedure Note Donita Veras MD - 01/01/2024 Ultrasound of the abdominal aorta. History screening for AAA. There is no evidence of abdominal aortic aneurysm. Proximal aorta measures2 cm AP, mid aorta measures 2.1 cm AP, distal aorta measures 1.6 cm AP. Proximal common iliacarteries measure 1.1 cm in size each. There are multiple calcified plaques within the distalabdominal aorta. CONCLUSIONS: Atherosclerotic changes. No evidence of AAA. Wilfred Fernandez MD IMG US PROCEDURES Final Result * Hepatitis C Screening (06/09/2014) Hepatitis C Screening Abstracted Historical Provider HEALTH MAINTENANCE Final Result from Last 3 Months or Most Recently Relevant to Health Maintenance Insurance [employer] Care Teams Optical Goods Drill Operator Relationship Specialty Start Date End Date Wilfred Fernandez MD [address] [place] [id number] PCP - General Internal Medicine 05/25/15
--- OUTSIDE RECORDS SUMMARY | 2025-10-04 07:25 | XMS_ITS ---
Author Name [facility] Organization Unknown History of Medication Use Medication Directions Dispensed Refills Start Date End Date Stat us simvastatin (ZOCOR) 20 MG tablet Take 1 Tab by mouth at bedtime. 05/07/2017 active lisinopril (PRINIVIL,ZeSTRIL) 40 MG tablet Take 1 Tab by mouth daily. 02/24/2017 active Problems Problem Status Onset Date Problem Type Date of Resoluti on Source Bladder cancer active 2017-08-[address] History of colonic polyps active 2010-10-14 ProblemAct [facility] Onychomycosis active 2015-07-23 ProblemAct [facility] T Anxiety active 2014-07-17 ProblemAct [facility] Hyperlipidemia active 2014-06-[address] HTN (hypertension) active 2014-06-09 ProblemAct [facility] Care Team Organization Name Specialty Phone Email Start Date End [facility] 03/14/2025 [facility] 10/07/2022 07/18/2024
--- OUTSIDE RECORDS SUMMARY | 2025-10-04 07:25 | XMS_ITS | Clinical Summary ---
Author Organization [facility] Address [address] [place] [address] Care Team Providers Care Lead Pourer Name Role Phone Wilfred Fernandez MD Primary Care Provider Isa Kaba RN Unavailable Allergies No known active allergies Medications lisinopril (PRINIVIL,ZeSTRI L) 40 MG tablet Take 1 Tab by mouth daily. 02/24/2017 Active simvastatin (ZOCOR) 20 MG tablet Take 1 Tab by mouth at bedtime. 05/07/2017 Active Active Problems Problem Noted Date Diagnosed Date Bladder cancer 08/21/2017 Overview (03/08/2018): Overview: Followed by dr. Haddad. S/p urostomy Onychomycosis 07/23/2015 Anxiety 07/17/2014 HTN (hypertension) 06/09/2014 Hyperlipidemia 06/09/2014 History of colonic polyps 10/14/2010 Overview (03/08/2018): Overview: Negative colonoscopy 10/14/2010, no colon cancer screening needed for 5 years. Family History Medical History Relation Name Comments No Known Problems Brother 1 1 No Known Problems Daughter 1 No Known Problems Sister 1 2 No Known Problems Son 1 Relation Name Status Comments Brother 1 1 Alive Brother 2 3 Daughter 1 Alive Father Mother Sister 1 2 Alive Sister 2 1 Son 1 Alive Social History Tobacco Use Types Packs/Day Years [...] on file Sexual Orientation Not on file Last Filed Vital Signs Vital Sign Reading Time Taken Comments Blood Pressure 118/70 09/03/2017 11:19 AM EDT Pulse 89 09/03/2017 11:19 AM EDT Temperature 36.1 C (97 F) 08/27/2017 8:26 AM EDT Respiratory Rate 18 03/08/2018 3:00 PM EDT Oxygen Saturation 97% 08/27/2017 8:26 AM EDT Inhaled Oxygen Concentration - - Weight 81.6 kg (180 lb) 03/08/2018 3:00 PM EDT Height 177.8 cm (5' 10 ) 03/08/2018 3:00 PM EDT Body Mass Index 25.83 03/08/2018 3:00 PM EDT Plan of Treatment Health Maintenance Due Date Last Done Comments Advance Care Planning 1950 Hepatitis C Virus Screening 1950 COVID-19 Vaccine (#1) 1953 DTaP/Tdap/Td Vaccines (1 - Tdap) 1967 Pneumococcal Vaccines 50+ (1 of 2 - PCV) 1967 Zoster (Shingles) Vaccine (1 of 2) 1967 RSV Vaccine 50 years and old er and Patients (1 - 1-dose 75+ series) 2023 Influenza Vaccine 06/30/2025 Hepatitis B Vaccines Aged Out No long er eligible based on patient's age to complete this topic Insurance [facility] MEDICARE Advance Directives * Full Code (Latest Code Status on File) Date Activated Date Inactivated Comments 08/21/2017 8:37 PM * Full Code Date Activated Date Inactivated Comments 08/21/2017 6:05 AM 08/21/2017 8:37 PM Care Teams Lead Pourer Relationship Specialty Start Date End Date Wilfred Fernandez MD PCP - General 04/23/17 Isa Moser RN [address] [place] [address] Oncology Nurse Navigator 05/25/17
--- OUTSIDE RECORDS SUMMARY | 2025-10-04 07:25 | XMS_ITS | Encounter Summary ---
Author Organization [facility] Address [address] [place] [address] Care Team Providers Care Quantitative Manager Name Role Phone Wilfred Fernandez MD Primary Care Provider Isa Kaba RN Unavailable [phone] Reason for Referral * Surgical (Routine) - Closed Specialty Diagnoses / Procedures Referred By Contac t Referred To Contact Anesthesiology Diagnoses Malignant neoplasm of urinary bladder, unspecified site (HCC) Jc Ortiz MD [address] [place] [address] Phone: tel: fax: Referral ID Status Reason Start Date Expiration Date V isits Requested Visits Authorized [id number] Closed Specialty Services Required 07/21/2017 07/22/2018 1 1 Encounter Details Date Type Department Care Team (Late st Contact Info) Description 07/21/2017 Prep for Surgery [facility] Urologic Surgery [address] [place] [address] Jc Ortiz MD [address] [address] Malignant neoplasm of urinary bladder, unspecified site (HCC) (Primary Dx) Social History Tobacco Use Types Packs/Day Years Used Date Smoking Tobacco: Former Cigarettes 0.5 4 0 05/11/1973 - 05/11/1977 Alcohol Use Standard Drinks/Week Comments Yes 3 (1 standard drink = 0.6 oz pur e alcohol) Sex and Gender Information Value Date Recorded Sex Assigned at Not on file Legal Sex Male 1:11 PM EDT Gender Identity Not on file Sexual Orientation Not on file documented as of this encounter Plan of Treatment Scheduled Referrals Name Type Priority Associated Diagnoses Order Schedule Ambulatory referral to Anesthesiology Outpatient Referral Routine Malignant neoplasm of urinary bladder, unspecified site (HCC) Ordered: 07/21/2017 documented as of this encounter Visit Diagnoses Diagnosis Malignant neoplasm of urinary bladder, unspecified site (HCC)- Primary documented in this encounter Care Teams Quantitative Manager Relationship Specialty Start Date End Date Wilfred Fernandez MD PCP - General 04/23/17 Isa Moser RN [address] [place] [address] Oncology Nurse Navigator 05/25/17 documented as of this encounter
[2025-10-04 08:11] LABS: Anion Gap 12 (12-20); Blood Urea Nitrogen 19 mg/dL (9-16); Calcium 9.0 mg/dL (8.4-10.2); Carbon Dioxide 30 mmol/L (22-29); Chloride 105 mmol/L (96-108); Estimated Glomerular Filt Rate > 60; Potassium 5.3 mmol/L (3.3-5.1); Sodium 142 mmol/L (135-145)
[2025-10-04 08:52] LABS: Folate 9.1 ng/mL (> or = 4.0); Vitamin B12 337 pg/mL (200-900)
== END 2025-10-04 07:23 | disposition home or self-care (01) ==
LOC: HO.LAB 07:22
PROVIDERS: PCP Internal Medicine; Visit Provider Urology
DX: C67.9 Malignant neoplasm of bladder, unspecified (principal); N20.0 Calculus of kidney
CPT/HCPCS: 36415; 80048; 82607; 82746

== ENCOUNTER 2025-10-09 10:58 | Outpatient (REF) | payer MEDICARE, SELFPAY ==
--- NOTE | ~2025-10-09 | US_ITS ---
CLINICAL HISTORY: R31.29 - Other microscopic hematuria US Renal Comparison: US/SR - US KIDNEY BILATERAL - 10/10/24 07:48 EST Findings: Right kidney normal size and echotexture, 13.1 cm length. There is a 7.3 x 5.6 x 6.1 cm simple cyst arising from the upper pole without significant change. There is a 1.7 x 1.2 x 1.3 cm cyst arising from the upper pole without significant change in size but containing a new septation. Left kidney normal size and echotexture, 11.7 cm length. There is a 7.3 x 5.5 x 5.6 cm simple appearing cyst arising from the upper pole with interval increase in size. No hydronephrosis of either kidney. Normal color Doppler IMPRESSION: 1. There are bilateral kidney cysts as above. Given a new septation within 1 of the right kidney cysts an interval increase in the size of a left kidney cyst, recommend continued ultrasound follow-up. This document has been electronically signed by: Antonieta Hanson MD on 10/10/2025 15:26:39
--- OUTSIDE RECORDS SUMMARY | 2025-10-09 13:10 | XMS_ITS | Encounter Summary ---
Author Organization [facility] Address [address] [place] [address] Care Team Providers Care Director Of Income Tax Name Role Phone Wilfred Fernandez MD Primary Care Provider Isa Kaba RN Unavailable [phone] Reason for Referral * Surgical (Routine) - Closed Specialty Diagnoses / Procedures Referred By Contac t Referred To Contact Anesthesiology Diagnoses Malignant neoplasm of urinary bladder, unspecified site (HCC) Jc Ortiz MD [address] [place] [address] Phone: tel: fax: Referral ID Status Reason Start Date Expiration Date V isits Requested Visits Authorized [id number] Closed Specialty Services Required 07/21/2017 07/22/2018 1 1 Encounter Details Date Type Department Care Team (Late st Contact Info) Description 07/21/2017 Prep for Surgery [facility] Urologic Surgery [address] [place] [address] Jc Ortiz MD [address] [address] Malignant neoplasm of urinary bladder, unspecified site [...] Primary documented in this encounter Care Teams Director Of Income Tax Relationship Specialty Start Date End Date Wilfred Fernandez MD PCP - General 04/23/17 Isa Moser RN [address] [place] [address] Oncology Nurse Navigator 05/25/17 documented as of this encounter
--- OUTSIDE RECORDS SUMMARY | 2025-10-09 13:10 | XMS_ITS | Encounter Summary ---
Author Organization [facility] Address [address] [place] [address] Care Team Providers Care Senior National Account Manager Name Role Phone Wilfred Fernandez MD Primary Care Provider Isa Kaba RN Unavailable [phone] Encounter Details Date Type Department Care Team (Late st Contact Info) Description 08/17/2017 Prep for Surgery [facility] Urologic Surgery [address] [place] [address] Jc Ortiz MD [address] [address] Social History Tobacco Use Types Packs/Day Years [...] on filedocumented in this encounter Care Teams Senior National Account Manager Relationship Specialty Start Date End Date Wilfred Fernandez MD PCP - General 04/23/17 Isa Moser RN [address] [address] Oncology Nurse Navigator 05/25/17 documented as of this encounter
--- OUTSIDE RECORDS SUMMARY | 2025-10-09 13:10 | XMS_ITS | Encounter Summary ---
Author Organization [facility]ly [facility] Address [address] [place] [address] Care Team Providers Care Recovery Specialist Name Role Phone Wilfred Fernandez MD Primary Care Provider Isa Kaba RN Unavailable [phone] Encounter Details Date Type Department Care Team (Late st Contact Info) Description 08/17/2017 Documentation HH WOUND IP [address] [place] [address] Mara Dunbar RN 80 [place] [address] Social History Tobacco Use Types Packs/Day Years [...] on filedocumented in this encounter Care Teams Recovery Specialist Relationship Specialty Start Date End Date Wilfred Fernandez MD PCP - General 04/23/17 Isa Moser RN [address] [address] Oncology Nurse Navigator 05/25/17 documented as of this encounter
--- OUTSIDE RECORDS SUMMARY | 2025-10-09 13:10 | XMS_ITS | Clinical Summary ---
Author Organization [employer] Address [address] [facility] 7t [place] [address] Care Team Providers Care Dial Lathe Operator Name Role Phone Unavailable Primary Care [...]
--- OUTSIDE RECORDS SUMMARY | 2025-10-09 13:10 | XMS_ITS | Clinical Summary ---
Author Organization [facility] Address [address] [place] [address] Phone Care Team Providers Care Metrology Technician Name Role Phone Wilfred Fernandez MD Primary Care Provider [phone] Allergies No known active allergies Medications LORazepam [...] Problem Noted Date Diagnosed Date Bladder cancer ([facility] V24, [facility] V28) 2016 Overview (11/09/2024): Followed by Dr. Urias. S/p urostomy Assessment & Plan (09/06/2025 10:19 AM EDT): Onychomycosis 07/23/2015 Anxiety 07/17/2014 Assessment & Plan (09/06/2025 10:19 AM EDT): HTN (hypertension) 06/09/2014 Assessment & Plan (09/06/2025 10:19 AM EDT): Hyperlipidemia 06/09/2014 Assessment & Plan (09/06/2025 10:19 AM EDT): Encounters Date Type Department Care Team Description 09/06/2025 9:30 AM EDT Office Visit Adult Medicine [address] [id number] Wilfred Fernandez MD Routine general medical examination [...] Comments COLONOSCOPY 11/30/2004 PROCEDURE: HISTORICAL COLONOSCOPY; COMMENT: [facility], polyps removed. COLONOSCOPY 10/14/2010 PROCEDURE: HISTORICAL COLONOSCOPY; [...] for your loved ones. For example, child nutrition assistant or elderly care for an older [...] 9:30 AM EDT Office Visit Adult Medicine [facility] [address] [place] [address] Zahra Page NP [address] [place] [address] Health Maintenance Due Date Last Done Comments Zoster Vaccines (2 of 2) 02/01/2021 12/07/2020 Colorectal Cancer Screening: Stool Based Tests (FOBT/FIT) 11/08/2022 RSV Immunization Adult Patients (1 - 1-dose 75+ series) 2023 09/15/2023 COVID-19 Vaccine ( season) 2025 08/22/2024, 09/14/2023, 09/10/2022, Additional history [...] LAB CHEMISTRY METHOD 08/30/2025 11:24 AM EDT [facility] Blood Venous blood specimen / Unknown Venipuncture / Unknown 08/30/2025 8:30 AM EDT 08/30/2025 8:30 AM EDT Wilfred Fernandez MD LAB BLOOD ORDERABLES Final Resul t Performing Organization Address City/[facility]/ZIP Co de Phone Number [facility] [address] [place] [address], [place] [phone] * Lipid panel with reflex to direct LDL (08/30/2025 8:30 AM EDT) Cholesterol 153 0 - 200 mg/dL LAB CHEMISTRY METHOD 08/30/2025 10:30 AM EDT [facility] Triglycerides 120 0 - 150 mg/dL LAB CHEMISTRY METHOD 08/30/2025 10:30 AM EDT [facility] HDL 71 >=40 mg/dL LAB CHEMISTRY METHOD 08/30/2025 10:30 AM EDT [facility] LDL Calculated 58 0 - 100 mg/dL LAB CHEMISTRY METHOD 08/30/2025 10:30 AM EDT [facility] Comment:Estimated LDL Calcul ated using equation: Total cholesterol - HDL cholesterol - (Triglycerides/5) VLDL Cholesterol [place] 24 mg/dL LAB CHEMISTRY METHOD 08/30/2025 10:30 AM EDT [facility] Non HDL Chol. (LDL+VLDL) 82 <145 mg/dL LAB CHEMISTRY METHOD 08/30/2025 10:30 AM EDT [facility] Chol/HDL Ratio 2.2 0.0 - 4.4 LAB CHEMISTRY METHOD 08/30/2025 10:30 AM T [facility] Blood Venous blood specimen / Unknown Venipuncture / Unknown 08/30/2025 8:30 AM EDT 08/30/2025 8:30 AM EDT us Wilfred Fernandez MD LAB BLOOD ORDERABLES Final Resul t [facility] [address] [place] [address], [place] [phone] * Hemoglobin A1c (08/30/2025 8:30 AM EDT) [facility] Hemoglobin A1C 5.4 <6.5 % LAB CHEMISTRY METHOD 08/30/2025 1:35 PM EDT [facility] Mean Bld Glu Estim. 108 mg/dL LAB CHEMISTRY METHOD 08/30/2025 1:35 PM EDT [facility] Blood Venous blood specimen / Unknown Venipuncture / Unknown 08/30/2025 8:30 AM EDT 08/30/2025 8:30 AM EDT Wilfred Fernandez MD LAB BLOOD ORDERABLES Final Resul t [facility] [address] [place] [address], * Basic metabolic panel (08/30/2025 8:30 AM EDT) [facility] Sodium 138 133 - 145 mmol/L LAB CHEMISTRY METHOD 08/30/2025 10:30 AM [facility] Potassium 4.3 3.5 - 5.5 mmol/L LAB CHEMISTRY METHOD 08/30/2025 10:30 AM [facility] Chloride 104 96 - 110 mmol/L LAB CHEMISTRY METHOD 08/30/2025 10:30 AM [facility] CO2 31 21 - 32 mmol/L LAB CHEMISTRY METHOD 08/30/2025 10:30 AM [facility] Anion Gap 3 3 - 11 LAB CHEMISTRY METHOD 08/30/2025 10:30 AM [facility] Glucose 95 70 - 100 mg/dL LAB CHEMISTRY METHOD 08/30/2025 10:30 AM [facility] BUN 17 5 - 25 mg/dL LAB CHEMISTRY METHOD 08/30/2025 10:30 AM EDT [facility] Creatinine 0.81 0.70 - 1.30 mg/dL LAB CHEMISTRY METHOD 08/30/2025 10:30 AM EDT [facility] eGFR 91 >=60 mL/min/1. 73m2 LAB CHEMISTRY METHOD 08/30/2025 10:30 AM EDT [facility] Comment:Calculation based on the Chronic Kidney Disease Epidemiology Collaboration (CKD-EPI) equation refit without adjustment for race. BUN/Creatinine Ratio 21.0 LAB CHEMISTRY METHOD 08/30/2025 10:30 AM [facility] Calcium 9.0 8.5 - 10.5 mg/dL LAB CHEMISTRY METHOD 08/30/2025 10:30 AM [facility] Blood Venous blood specimen / Unknown Venipuncture / Unknown 08/30/2025 8:30 AM EDT 08/30/2025 8:30 AM EDT Wilfred Fernandez MD LAB BLOOD ORDERABLES Final Resul t [facility] [address] [place] [address], * Colonoscopy (04/09/2021) Colonoscopy Normal, Abstracted Anatomical Region Laterality Modality Other Historical Provider [facility] Final Result * US ABDOMINAL AORTA REAL [...] [employer] [place] MEDICARE ADVANTAGE Care Teams Metrology Technician Relationship Specialty Start Date End Date Wilfred Fernandez MD [address] [place] [id number] PCP - General Internal Medicine 05/25/15
--- OUTSIDE RECORDS SUMMARY | 2025-10-09 13:11 | XMS_ITS | Clinical Summary ---
Author Organization [facility] Address [address] [place] [address] Care Team Providers Care Mail Reader Name Role Phone Wilfred Fernandez MD Primary Care Provider Isa Kaba RN Unavailable [phone] Allergies No known active allergies Medications lisinopril [...] patient's age to complete this topic Insurance [facility] MEDICARE Advance Directives * Full Code (Latest Code Status on File) Date Activated Date Inactivated Comments 08/21/2017 8:37 PM * Full Code Date Activated Date Inactivated Comments 08/21/2017 6:05 AM 08/21/2017 8:37 PM Care Teams Mail Reader Relationship Specialty Start Date End Date Wilfred Fernandez MD PCP - General 04/23/17 Isa Moser RN [address] [place] [address] Oncology Nurse Navigator 05/25/17
== END 2025-10-09 10:59 | disposition home or self-care (01) ==
LOC: HO.US 10:58
PROVIDERS: PCP Internal Medicine; Visit Provider Urology
DX: R31.29 Other microscopic hematuria (principal); C67.9 Malignant neoplasm of bladder, unspecified
CPT/HCPCS: 76775

== ENCOUNTER → 2025-10-09 11:00 | Outpatient (BNV) | payer MEDICARE, SELFPAY | PROVIDERS: PCP Internal Medicine; Visit Provider Radiology Diagnostic Radiology | DX: N28.1 Cyst of kidney, acquired (principal) | CPT/HCPCS: 76775 ==

== ENCOUNTER 2025-10-19 08:04 | Outpatient (AMB) | payer MEDICARE, SELFPAY ==
--- OUTSIDE RECORDS SUMMARY | 2025-07-11 04:30 | XMS_ITS ---
Author Organization [facility] Address [address] [place] [address] Care Team Providers Care Outbound Sales Agent Name Role Phone Rebecca QUESADA, Wilfred Pope Primary Care Provider Unav ailable Mariaa Navarrete Unavailable [phone] Barton Encounters Encounter Location Date Provider Diagnosis [facility] [address] [place] [address] 07/11/2025 Mariaa Navarrete Plan Of Treatment No Information Progress Notes * Bassem BAJWADOB: [birth year] (75 yo M)Acc No.[id number]:07/11/2025 Progress Notes Patient: Bassem FRANCISCO Provider: Sera Navarrete DPM :1950 A ge:75 Y S ex:Male Date:07/11/2025 Address:[address] [place] [id number] Pcp:Wilfred Fernandez MD Subjective: * Chief Complaints: [...] 0 07/11/2025 Generated for Tee webster/Oscar/Mariolaitting on: 12/19/2024 08:22 AM EST
--- NOTE | 2025-10-19 08:21 | A.OFFVIS_ITS ---
Intake Visit Reasons: 1y/US/labs Intake Note: Patient is Present for 1 YR Follow Up Urology Medication: None Antibiotic Allergies:None Blood Thinners: None Labs done :10/04/25 VITB12: 337 , BMP, Imaging : Renal Ultrasound Imagin10/10/2025 -Renal Ultrasound Bladder CA - Last Urine Cytology- 10/27/22-Negative for high-grade urothelial carcinoma Threading Machine Feeder Automatic Required: No Accompanied by: Self / Same As Patient Allergies No Known Allergies (No Known Allergies*) Allergy (Verified 10/19/25 08:24) HPI Comments Details: ?Mr Lopez is a very pleasant male. They are a patient of Dr Fernandez. They are seen in the office today for the following urologic conditions. 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 Cystectomy August 2017 ?Completed interval imaging ?No abnormality detected ?Cytology normal 09/20, FISH NAD 10/22 ?Doing well ?Stoma looks pink and minimal mucus - coloplast products - [employer] ?Review in 12 months. ? Bladder cancer was initially diagnosed?Dr Haddad , during evaluation for microscopic hematuria 03/2017.? Bladder intervention(s) performed?04/15 , TURBT, T2a invades superficial muscularis propia, High Grade ?09/[address] Ortiz - [id number].? Bladder cancer risk factors? Organic Solvent exposure ?No ? smoking ?No ? hair dye exposure ?No ? use of pioglitazone ?No ? chronic cystitis ?No ? prior chemotherapy with cyclophosphamide ?No ? family history of bladder cancer ?No ? pelvic radiation ?No ? Associated symptoms? hematuria ?Yes ? urge ?Yes ? Prior Cytology?04/15 , Cells consistent with malignancy ?03/17 , Normal ?08/17 , Negative for malignancy ?08/18 Labs B12 - Normal, Cytology Normal ?07/19 Normal - Cr 0.9 ? Prior Imaging?04/15 , CT scan with contrast [place] - no ángel disease, 5cm UVJ left lesion ?03/17 CT and CXR , No evidence for metastases, Negative ?08/17 imaging normal, 01/18 CT abd/pelvis NAD, small hernia, 08/18 CT NAD, 01/19 CT NAD, 07/19 CT NAD. 09/19 US NAD, 09/20 CT Urogram NAD - 09/21 US NAD, 09/22 NAD - 09/23 ultrasound bilateral renal cyst PFSH Medical History Malignant neoplasm of dome of bladder Bladder cancer Microscopic hematuria Prostatitis Surgical History H/O partial cystectomy Social History Alcohol intake: never Patient Tobacco Use Status: Former Tobacco user Review of Systems Const Denies chills and Denies fever(s) Card Reports no additional complaints and Denies syncope Resp Denies cough GI Denies abdominal pain and Denies heartburn Reports as per HPI and Denies change in libido Neuro Denies syncope Psych Denies change in libido Endo Denies change in libido Physical Exam Const General: cooperative, healthy appearing, comfortable and no acute distress Orientation/consciousness: patient oriented x3 HEENT Face and sinus: Yes normal facial exam Mouth: moist mucous membranes Neck Neck: Yes normal visual inspection, Yes full ROM and Yes trachea midline Chest Chest palpation & inspection: normal inspection of the chest Resp Effort & Inspection: normal respiratory effort, able to speak in complete sentences and no respiratory distress GI Inspection: Yes normal to inspection Back/Spine/Pelvis Cervical Spine: normal cervical lordosis Thoracic/Lumbar Spine: thoracic and lumbar spine normal to inspection Skin General skin exam: no rashes or lesions noted Neuro General: patient oriented x3, gait normal, tone normal and moves all extremities Extrem General: Yes normal to inspection and Yes capillary refill normal Results AMB Urinalysis, Automated UA Leukoctes 70 Shayy/uL Last Edit by Olga Lidia Chan [facility] on 10/19/25 08:31 UA Nitrite Positive Last Edit by Olga Lidia Chan, [facility] on 10/19/25 08:31 UA Urobilinogen 0.2 mg/dL Last Edit by Olga Lidia Chan, [facility] on 10/19/25 08:31 UA Protein 0 mg/dL Last Edit by Olag Lidia Chan [facility] on 10/19/25 08:31 UA pH 6.0 Last Edit by Olga Lidia Chan, [facility] on 10/19/25 08:31 UA Blood 25 Miquel/uL Last Edit by Olga Lidia Chan, [facility] on 10/19/25 08:31 UA Specific [place] 1.015 Last Edit by Olga Lidia Chan [facility] on 10/19/25 08:3 1 UA Ketone Negative Last Edit by Olga Lidia Chan [facility] on 10/19/25 08:31 UA Bilirubin 0 mg/dL Last Edit by Olga Lidia Chan [facility] on 10/19/25 08:31 UA Glucose 0 mg/dL Last Edit by Olga Lidia Chan [facility] on 10/19/25 08:31 Results Reviewed Results Reviewed: Laboratory Last Values Urine pH (Auto) 6.0 10/19/25 08:31 Specific [place] (Auto) 1.015 10/19/25 08:31 Urine Protein (Auto) 0 mg/dL 10/19/25 08:31 Glucose (UA)(Auto) 0 mg/dL 10/19/25 08:31 Urine Ketones (Auto) Negative 10/19/25 08:31 Urine Blood (Auto) 25 Miquel/uL 10/19/25 08:31 Urine Nitrite (Auto) Positive 10/19/25 08:31 Urine Bilirubin (Auto) 0 mg/dL 10/19/25 08:31 Urine Urobilinogen (Auto) 0.2 mg/dL 10/19/25 08:31 Leukocyte Esterase (Auto) 70 Shayy/uL 10/19/25 08:31 Assessment & Plan Assessment & Plan (1) Renal cyst: Code(s): N28.1 - Cyst of kidney, acquired Category: Medical (2) Bladder cancer: Comment: High-grade invasive cystectomy August 2017 Code(s): C67.9 - Malignant neoplasm of bladder, unspecified Category: Medical Plan Twelve month follow-up ultrasound Orders: Orders US renal BI 12 Months N28.1 - Cyst of kidney, acquired FISH Bladder Cancer Today C67.9 - Malignant neoplasm of bladder, unspecified Patient Instructions: This note is constructed using voice recognition software. While every effort has been made to ensure accuracy pm head cook errors may have been included. Imaging studies, laboratory and physical exam results were discussed and reviewed in detail. No major barriers to patient understanding were identified. An opportunity to ask questions regarding the treatment plan was provided. All questions were answered. The patient expressed understanding and agreement with the above treatment plan. The patient is aware they should contact our office by phone for worsening of their current condition or the appearance of new urologic symptoms. Compliance is encouraged with any medications and followup testing that is ordered. It is a privilege to participate in the urologic care of your patient. If you have any questions or concerns regarding treatment for the above conditions, or other urologic issues, please do not hesitate to contact me. The office telephone contact is [phone]. Sincerely, Dr Ha Haddad MD, [facility] - Urology Compassionate Specialist Care for the Genitourinary System Coding Level of Care Code Est Pt Level 4 (71818) Complex EM visit Add On G2211 Diagnoses Renal cyst N28.1 Bladder cancer C67.9
--- OUTSIDE RECORDS SUMMARY | 2025-10-19 08:22 | XMS_ITS | Encounter Summary ---
Author Organization [facility] Address [address] [place] [address] Care Team Providers Care Raw Sampler Name Role Phone Wilfred Fernandez MD Primary Care Provider Isa Kaba RN Unavailable Encounter Details Date Type Department Care Team (Late st Contact Info) Description 08/17/2017 Documentation HH WOUND IP [address] [place] [address] Mara Dunbar RN [address] [place] [address] Social History Tobacco Use Types Packs/Day Years [...] on filedocumented in this encounter Care Teams Raw Sampler Relationship Specialty Start Date End Date Wilfred Fernandez MD PCP - General 04/23/17 Isa Moser RN [address] [address] Oncology Nurse Navigator 05/25/17 documented as of this encounter
--- OUTSIDE RECORDS SUMMARY | 2025-10-19 08:22 | XMS_ITS | Encounter Summary ---
Author Organization [facility] Address [address] [place] [address] Care Team Providers Care Fireworks Assembly Supervisor Name Role Phone Wilfred Fernandez MD Primary Care Provider Isa Kaba RN Unavailable [phone] Reason for Referral * Surgical (Routine) - Closed Specialty Diagnoses / Procedures Referred By Contac t Referred To Contact Anesthesiology Diagnoses Malignant neoplasm of urinary bladder, unspecified site (HCC) Jc Ortiz MD [address] [place] [address] Phone: tel: fax: Referral ID Status Reason Start Date Expiration Date V isits Requested Visits Authorized [id number] Closed Specialty Services Required 07/21/2017 07/22/2018 1 1 Encounter Details Date Type Department Care Team (Late st Contact Info) Description 07/21/2017 Prep for Surgery [facility] Urologic Surgery [address] [place] [address] Jc Ortiz MD [address] [address] Malignant neoplasm of urinary bladder, unspecified site [...] Primary documented in this encounter Care Teams Fireworks Assembly Supervisor Relationship Specialty Start Date End Date Wilfred Fernandez MD PCP - General 04/23/17 Isa Moser RN [address] [place] [address] Oncology Nurse Navigator 05/25/17 documented as of this encounter
--- OUTSIDE RECORDS SUMMARY | 2025-10-19 08:22 | XMS_ITS | Patient Health Record ---
Author Organization [facility] Address [address] [place] [address] Care Team Providers Care Diploma Medical Assistant Name Role Phone Rebecca QUESADA, Wilfred Pope Primary Care Provider Unav ailable Mariaa Navarrete Unavailable [phone] Allergies No Known Allergies Reason For Referral [...] pressure diastolic 80 mm Hg 07/25/2025 Height [id number] in 07/25/2025 Blood pressure systolic 122 mm Hg 07/25/2025 Weight 182 lbs 07/25/2025 BMI 26.11 kg/m2 07/25/2025 Encounters Encounter Location Date Provider Diagnosis [facility] [address] [place] [address] 07/25/2025 Mariaa Navarrete Onychomycosis B35.1 ; Tinea pedis of both feet B35.3 ; Pain in right toe(s) M79.674 and Pain in left toe(s) M79.675 [facility] [address] [address] 04/25/2025 Mariaa Navarrete Assessments Encounter Date Diagnosis [...] Date [employer] [place] Medicare Advantage [facility] [address] [place] [address] [id number] Bassem Lopez Self - patient is the insured 4 Medical (General) History Medical History History ICD Code bladder cancer High Blood Pressure Surgical History Surgery Date(Month/Year) bladder removal 07/1997
--- OUTSIDE RECORDS SUMMARY | 2025-10-19 08:22 | XMS_ITS | Encounter Summary ---
Author Organization [facility] Address [address] [place] [address] Care Team Providers Care Senior Infrastructure Architect Name Role Phone Wilfred Fernandez MD Primary Care Provider Isa Kaba RN Unavailable Encounter Details Date Type Department Care Team (Late st Contact Info) Description 08/17/2017 Prep for Surgery [facility] Urologic Surgery [address] [place] [address] Jc Ortiz MD [address] [address] Social History Tobacco Use Types Packs/Day Years [...] filedocumented in this encounter Care Teams Senior Infrastructure Architect Relationship Specialty Start Date End Date Wilfred Fernandez MD PCP - General 04/23/17 Isa Moser RN [address] [address] Oncology Nurse Navigator 05/25/17 documented as of this encounter
--- OUTSIDE RECORDS SUMMARY | 2025-10-19 08:22 | XMS_ITS | Clinical Summary ---
Author Organization [email or web address] Address [address] [facility] 7t [place] [address] Care Team Providers Care Poultry Farmworker Name Role Phone Unavailable Primary Care Provider [...] Tdap) 07/17/2024 07/17/2014 COVID-19 Vaccine (2 - 2024- season) 2025 08/22/2024 Influenza Vaccine (#1) 2025 [...]
--- OUTSIDE RECORDS SUMMARY | 2025-10-19 08:22 | XMS_ITS | Clinical Summary ---
Author Organization [facility] Address [address] [place] [address] Care Team Providers Care Environmental Services Lead Name Role Phone Wilfred Fernandez MD Primary [...] patient's age to complete this topic Insurance [facility] MEDICARE Advance Directives * Full Code (Latest Code Status on File) Date Activated Date Inactivated Comments 08/21/2017 8:37 PM * Full Code Date Activated Date Inactivated Comments 08/21/2017 6:05 AM 08/21/2017 8:37 PM Care Teams Environmental Services Lead Relationship Specialty Start Date End Date Wilfred Fernandez MD PCP - General 04/23/17 Isa Moser RN [address] [place] [address] Oncology Nurse Navigator 05/25/17
== END 2025-10-19 08:51 | disposition home or self-care (01) ==
LOC: HO.HUSH 08:04
PROVIDERS: PCP Internal Medicine; Visit Provider Urology
DX: N28.1 Cyst of kidney, acquired (principal); C67.9 Malignant neoplasm of bladder, unspecified
CPT/HCPCS: 99214; G2211

== ENCOUNTER 2025-10-19 08:04 | Outpatient (REF) | payer MEDICARE, SELFPAY | END 2025-10-19 08:05 | disposition home or self-care (01) | LOC: HO.LAB 08:04 | PROVIDERS: PCP Internal Medicine; Visit Provider Urology | DX: N28.1 Cyst of kidney, acquired (principal); C67.9 Malignant neoplasm of bladder, unspecified | CPT/HCPCS: 88121; 99212 ==